=== PATIENT | female | born 1985 | race Caucasian/White ===

== ENCOUNTER 2020-06-29 11:45 | Outpatient (RCR) | payer OTHER, SELFPAY ==
--- NOTE | 2020-04-06 13:09 | W.PM.TMSCONS ---
History of Present Illness General Data Date of Service: 04/06/20 Reason for consult: TMS History of Present Illness Yoon has struggled with depression for many years. During this particular episode she has been having low mood, tearfulness, intrusive negative thoughts, no energy, no motivation and poor focus. She wonders if she can go on. She has tried various medications with Brad Gardiner, her prescriber, but remains symptomatic. She has no SI. She has on elissa. She has no psychosis. Current medication: Cymbalta 40mg daily - not able to tolerate higher doses due to constipation. Buspar was recently added but with no effect PHQ-9 19 KELLY-7 15 Past Psychiatric History/Medication Trials: No history of hospital stays. Therapy She has been seeing Yoanna De Jesus for over 3 years. She has remained symptomatic despite this. She sees Brad Gardiner, MEDICAL RECORDS RECEPTIONIST for medications. Medication trials: Celexa Lexapro Wellbutrin Sertraline Fetzima Effexor Timing of trials is not fully available at this time, but it is clear that the response was not adequate. 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 Trauma History: Unknown Mental Status Exam Mental Status Exam Patient Orientation: Person, Place, Time and Situation Level of Consciousness: Appropriate Patient Behavior: Appropriate and Cooperative Mood Description: Depressed and Sad Affect Description: Calm, Depressed and Sad Patient Cognition Impaired: No Ability to Follow Directions: Excellent Speech Pattern: Clear and Spontaneous Speech Memory Description: Intact Hallucinations: None Delusions: Not Present Thought Process: Intact, Rumination and Goal Oriented Thought Content: positive for Intact, positive for Circumstantial, negative for Suicidal Ideation and negative for Homicidal Ideation Depressive Symptoms: Insomnia, Diff. Making Decisions, Changes in Appetite, Loss of Int. in Activity, Feelings of Worthlessness, Hopelessness, Isolating-Friends/Family, Unhappiness, Thoughts of /Suicide, Low Self Esteem, Loss of Energy and Difficulty Concentrating Judgement: Good Assessment & Plan Assessment & Plan (1) Major depressive disorder, recurrent severe without psychotic features: Status: Acute Code(s): F33.2 - Major depressive disorder, recurrent severe without psychotic features Recommendations: Clear candidate for TMS. ECT is not an option due to restrictions this places on life. Refer for complete course of TMS. Greater than 50% of the session was spent on counseling and/or coordination of care Patient educated on: diagnosis, ECT and TMS Informed Consent: understands
--- NOTE | 2020-04-20 12:54 | HO.TMSDAILY2 ---
TMS Daily Progress Note Daily TMS Progress Note Week #: 1 Treatment #(07-14): 1 PHQ-9 Pre-Treatment (07-11): 18 PHQ-9 Most Recent (07-11): 18 KELLY-7 Pre-Treatment (0-): 15 KELLY-7 Most Recent (0-): 15 Reviewed: TMS Tech Note Reviewed (Had difficulty tolerating MT., but otherwise uncomplicated first treatment and mapping. Will CT as is for now.) Verification: I have reviewed the TMS Liturgical Music Director Note and agree with the contents. The patient remains a candidate to continue TMS treatment per protocol.
--- NOTE | 2020-04-24 21:59 | HO.TMSDAILY2 ---
TMS Daily Progress Note Daily TMS Progress Note Week #: 1 Treatment #(07-14): 2 PHQ-9 Pre-Treatment (07-11): 18 PHQ-9 Most Recent (07-11): 18 KELLY-7 Pre-Treatment (0-): 15 KELLY-7 Most Recent (0-): 15 Reviewed: TMS Tech Note Reviewed Verification: I have reviewed the TMS Exchange Architect Note and agree with the contents. The patient remains a candidate to continue TMS treatment per protocol.
--- NOTE | 2020-04-25 19:32 | HO.TMSDAILY2 ---
TMS Daily Progress Note Daily TMS Progress Note Week #: 1 Treatment #(07-14): 3 PHQ-9 Pre-Treatment (07-11): 18 PHQ-9 Most Recent (07-11): 18 KELLY-7 Pre-Treatment (0-21): 15 KELLY-7 Most Recent (0-21): 15 CGI-I Most Recent: 4 = No Change Q-LES-Q-SF Most Recent: 82 Reviewed: TMS Tech Note Reviewed Verification: I have reviewed the TMS Maintenance Superintendent Note and agree with the contents. The patient remains a candidate to continue TMS treatment per protocol.
--- NOTE | 2020-04-26 16:21 | HO.TMSDAILY2 ---
TMS Daily Progress Note Daily TMS Progress Note Week #: 1 Treatment #(07-14): 4 PHQ-9 Pre-Treatment (07-11): 18 PHQ-9 Most Recent (07-11): 18 KELLY-7 Pre-Treatment (0-21): 15 KELLY-7 Most Recent (0-21): 15 CGI-I Most Recent: 4 = No Change Q-LES-Q-SF Most Recent: 82 Reviewed: TMS Tech Note Reviewed Verification: I have reviewed the TMS Hotel Services Supervisor Note and agree with the contents. The patient remains a candidate to continue TMS treatment per protocol.
--- NOTE | 2020-04-27 23:16 | HO.TMSDAILY2 ---
TMS Daily Progress Note Daily TMS Progress Note Week #: 1 Treatment #(07-14): 5 PHQ-9 Pre-Treatment (07-11): 18 PHQ-9 Most Recent (07-11): 18 KELLY-7 Pre-Treatment (0-21): 15 KELLY-7 Most Recent (0-21): 15 CGI-I Most Recent: 4 = No Change Q-LES-Q-SF Most Recent: 82 Reviewed: TMS Tech Note Reviewed Verification: I have reviewed the TMS Military Technician Note and agree with the contents. The patient remains a candidate to continue TMS treatment per protocol.
--- NOTE | 2020-05-01 18:34 | HO.TMSDAILY2 ---
TMS Daily Progress Note Daily TMS Progress Note Week #: 2 Treatment #(07-14): 6 PHQ-9 Pre-Treatment (07-11): 19 PHQ-9 Most Recent (07-11): 15 KELLY-7 Pre-Treatment (0-21): 15 KELLY-7 Most Recent (0-21): 9 CGI-I Most Recent: 4 = No Change Q-LES-Q-SF Most Recent: 82 Reviewed: TMS Tech Note Reviewed (Yoon was remapped today. She was cooperative throughout. Settings were changed, and the MT was lower. Yoon was able to tolerate this much better.) Verification: I have reviewed the TMS Carbon Sequestration Plant Manager Note and agree with the contents. The patient remains a candidate to continue TMS treatment per protocol.
--- NOTE | 2020-05-01 23:59 | P.PNPS_ITS ---
TMS Daily Progress Note Daily TMS Progress Note Treatment #(-30): 6 PHQ-9 Pre-Treatment (-): 19 PHQ-9 Most Recent (07-11): 15 KELLY-7 Pre-Treatment (0-21): 15 KELLY-7 Most Recent (0-21): 9 CGI-I Most Recent: 4 = No Change Q-LES-Q-SF Most Recent: 82 Verification: I have reviewed the TMS Wellness Program Manager Note and agree with the contents. The patient remains a candidate to continue TMS treatment per protocol.
--- NOTE | 2020-05-02 14:11 | P.PNPS_ITS ---
TMS Daily Progress Note Daily TMS Progress Note Week #: 2 Treatment #(07-14): 7 PHQ-9 Pre-Treatment (07-11): 19 PHQ-9 Most Recent (07-11): 15 KELLY-7 Pre-Treatment (0-21): 15 KELLY-7 Most Recent (0-21): 9 CGI-I Most Recent: 4 = No Change Q-LES-Q-SF Most Recent: 82 Reviewed: TMS Tech Note Reviewed Verification: I have reviewed the TMS Field Auto Appraiser Note and agree with the contents. The patient remains a candidate to continue TMS treatment per protocol.
--- NOTE | 2020-05-03 04:20 | P.PNPS_ITS ---
TMS Daily Progress Note Daily TMS Progress Note Week #: 2 Treatment #(07-14): 8 PHQ-9 Pre-Treatment (07-11): 19 PHQ-9 Most Recent (07-11): 15 KELLY-7 Pre-Treatment (0-21): 15 KELLY-7 Most Recent (0-21): 9 CGI-I Most Recent: 4 = No Change Q-LES-Q-SF Most Recent: 82 Reviewed: TMS Tech Note Reviewed Verification: I have reviewed the TMS Clinic Scheduler Note and agree with the contents. The patient remains a candidate to continue TMS treatment per protocol.
--- NOTE | 2020-05-04 14:02 | P.PNPS_ITS ---
TMS Daily Progress Note Daily TMS Progress Note Week #: 2 Treatment #(07-14): 9 PHQ-9 Pre-Treatment (07-11): 19 PHQ-9 Most Recent (07-11): 15 KELLY-7 Pre-Treatment (0-21): 15 KELLY-7 Most Recent (0-21): 9 CGI-I Most Recent: 4 = No Change Q-LES-Q-SF Most Recent: 82 Reviewed: TMS Tech Note Reviewed Verification: I have reviewed the TMS Field Service Technician Poultry Note and agree with the contents. The patient remains a candidate to continue TMS treatment per protocol.
--- NOTE | 2020-05-08 23:15 | HO.TMSDAILY2 ---
TMS Daily Progress Note Daily TMS Progress Note Date of Service: 05/08/20 Week #: 2 Treatment #(07-14): 10 PHQ-9 Pre-Treatment (07-11): 19 PHQ-9 Most Recent (07-11): 16 CGI-I Most Recent: 4 = No Change Reviewed: TMS Tech Note Reviewed Verification: I have reviewed the TMS Director Of Institutional Research Note and agree with the contents. The patient remains a candidate to continue TMS treatment per protocol.
--- NOTE | 2020-05-09 05:45 | HO.TMSDAILY2 ---
TMS Daily Progress Note Daily TMS Progress Note Date of Service: 05/10/20 Week #: 3 Treatment #(-): 11 PHQ-9 Pre-Treatment (-): 19 PHQ-9 Most Recent (07-11): 16 KELLY-7 Pre-Treatment (0-21): 15 KELLY-7 Most Recent (0-21): 10 CGI-I Most Recent: 4 = No Change Q-LES-Q-SF Most Recent: 82 Reviewed: TMS Tech Note Reviewed Verification: I have reviewed the TMS Solution Sales Senior Executive Note and agree with the contents. The patient remains a candidate to continue TMS treatment per protocol.
--- NOTE | 2020-05-15 23:29 | HO.TMSDAILY2 ---
TMS Daily Progress Note Daily TMS Progress Note Date of Service: 05/15/20 Week #: 3 Treatment #(-): 12 PHQ-9 Pre-Treatment (-): 19 PHQ-9 Most Recent (07-11): 12 KELLY-7 Pre-Treatment (0-21): 15 KELLY-7 Most Recent (0-21): 10 CGI-I Most Recent: 4 = No Change Q-LES-Q-SF Most Recent: 82 Reviewed: TMS Tech Note Reviewed Verification: I have reviewed the TMS Skull Grinder Note and agree with the contents. The patient remains a candidate to continue TMS treatment per protocol.
--- NOTE | 2020-05-16 08:12 | P.PNPS_ITS ---
TMS Daily Progress Note Daily TMS Progress Note Date of Service: 05/16/20 Week #: 3 Treatment #(-): 13 PHQ-9 Pre-Treatment (-): 19 PHQ-9 Most Recent (07-11): 12 KELLY-7 Pre-Treatment (0-21): 15 KELLY-7 Most Recent (0-21): 10 CGI-I Most Recent: 4 = No Change Q-LES-Q-SF Most Recent: 82 Reviewed: TMS Tech Note Reviewed Verification: I have reviewed the TMS Resource Engineer Note and agree with the contents. The patient remains a candidate to continue TMS treatment per protocol.
--- NOTE | 2020-05-17 16:52 | P.PNPS_ITS ---
TMS Daily Progress Note Daily TMS Progress Note Date of Service: 05/17/20 Week #: 3 Treatment #(-): 14 PHQ-9 Pre-Treatment (-): 19 PHQ-9 Most Recent (07-11): 12 KELLY-7 Pre-Treatment (0-21): 15 KELLY-7 Most Recent (0-21): 10 CGI-I Most Recent: 4 = No Change Q-LES-Q-SF Most Recent: 75 Reviewed: TMS Tech Note Reviewed Verification: I have reviewed the TMS Chain Link Fence Installer Note and agree with the contents. The patient remains a candidate to continue TMS treatment per protocol.
--- NOTE | 2020-05-22 20:41 | HO.TMSDAILY2 ---
TMS Daily Progress Note Daily TMS Progress Note Date of Service: 05/22/20 Week #: 3 Treatment #(-30): 15 PHQ-9 Pre-Treatment (-): 19 PHQ-9 Most Recent (07-11): 12 KELLY-7 Pre-Treatment (0-21): 15 KELLY-7 Most Recent (0-21): 10 CGI-I Most Recent: 4 = No Change Q-LES-Q-SF Most Recent: 64 Reviewed: TMS Tech Note Reviewed Verification: I have reviewed the TMS Reheater Helper Note and agree with the contents. The patient remains a candidate to continue TMS treatment per protocol.
--- NOTE | 2020-05-23 20:54 | HO.TMSDAILY2 ---
TMS Daily Progress Note Daily TMS Progress Note Date of Service: 05/23/20 Week #: 4 Treatment #(-): 16 PHQ-9 Pre-Treatment (-): 19 PHQ-9 Most Recent (07-11): 12 KELLY-7 Pre-Treatment (0-21): 15 KELLY-7 Most Recent (0-21): 10 CGI-I Most Recent: 4 = No Change Q-LES-Q-SF Most Recent: 64 Reviewed: TMS Tech Note Reviewed Verification: I have reviewed the TMS Paper Tube Cutter Note and agree with the contents. The patient remains a candidate to continue TMS treatment per protocol.
--- NOTE | 2020-05-25 09:00 | HO.TMSDAILY2 ---
TMS Daily Progress Note Daily TMS Progress Note Date of Service: 05/25/20 Week #: 4 Treatment #(-30): 17 PHQ-9 Pre-Treatment (1-): 19 PHQ-9 Most Recent (07-11): 12 KELLY-7 Pre-Treatment (0-21): 15 KELLY-7 Most Recent (0-21): 10 CGI-I Most Recent: 4 = No Change Q-LES-Q-SF Most Recent: 64 Reviewed: TMS Tech Note Reviewed (Late entry for 05/24/20) Verification: I have reviewed the TMS Medical Sales Specialist Note and agree with the contents. The patient remains a candidate to continue TMS treatment per protocol.
--- NOTE | 2020-05-25 16:11 | HO.TMSDAILY2 ---
TMS Daily Progress Note Daily TMS Progress Note Date of Service: 05/25/20 Week #: 4 Treatment #(-): 18 PHQ-9 Pre-Treatment (-): 19 PHQ-9 Most Recent (07-11): 12 KELLY-7 Pre-Treatment (0-21): 15 KELLY-7 Most Recent (0-21): 10 CGI-I Most Recent: 4 = No Change Q-LES-Q-SF Most Recent: 64 Reviewed: TMS Tech Note Reviewed Verification: I have reviewed the TMS Vehicle Assembler Note and agree with the contents. The patient remains a candidate to continue TMS treatment per protocol.
--- NOTE | 2020-05-29 13:17 | P.PNPS_ITS ---
TMS Daily Progress Note Daily TMS Progress Note Date of Service: 05/29/20 Week #: 4 Treatment #(07-14): 19 PHQ-9 Pre-Treatment (-): 19 PHQ-9 Most Recent (07-11): 12 KELLY-7 Pre-Treatment (0-21): 15 KELLY-7 Most Recent (0-21): 12 CGI-I Most Recent: 4 = No Change Q-LES-Q-SF Most Recent: 64 Reviewed: TMS Tech Note Reviewed Verification: I have reviewed the TMS Enterprise Systems Manager Note and agree with the contents. The patient remains a candidate to continue TMS treatment per protocol.
--- NOTE | 2020-05-30 15:40 | HO.TMSDAILY2 ---
TMS Daily Progress Note Daily TMS Progress Note Date of Service: 05/30/20 Week #: 4 Treatment #(-30): 20 PHQ-9 Pre-Treatment (-): 19 PHQ-9 Most Recent (07-11): 12 KELLY-7 Pre-Treatment (0-21): 15 KELLY-7 Most Recent (0-21): 12 CGI-I Most Recent: 4 = No Change Q-LES-Q-SF Most Recent: 64 Reviewed: TMS Tech Note Reviewed Verification: I have reviewed the TMS Production Honing Machine Operator Note and agree with the contents. The patient remains a candidate to continue TMS treatment per protocol.
--- NOTE | 2020-06-01 18:19 | HO.TMSDAILY2 ---
TMS Daily Progress Note Daily TMS Progress Note Date of Service: 06/01/20 Week #: 5 Treatment #(-30): 21 PHQ-9 Pre-Treatment (-): 19 PHQ-9 Most Recent (07-11): 12 KELLY-7 Pre-Treatment (0-21): 15 KELLY-7 Most Recent (0-21): 12 CGI-I Most Recent: 4 = No Change Q-LES-Q-SF Most Recent: 64 Reviewed: TMS Tech Note Reviewed Verification: I have reviewed the TMS Ripening Room Hand Note and agree with the contents. The patient remains a candidate to continue TMS treatment per protocol.
--- NOTE | 2020-06-05 22:53 | P.PNPS_ITS ---
TMS Daily Progress Note Daily TMS Progress Note Date of Service: 06/05/20 Week #: 5 Treatment #(-30): 22 PHQ-9 Pre-Treatment (-): 19 PHQ-9 Most Recent (07-11): 12 KELLY-7 Pre-Treatment (0-21): 15 KELLY-7 Most Recent (0-21): 12 CGI-I Most Recent: 4 = No Change Q-LES-Q-SF Most Recent: 64 Reviewed: TMS Tech Note Reviewed Verification: I have reviewed the TMS Consulting Systems Engineer Note and agree with the contents. The patient remains a candidate to continue TMS treatment per protocol.
--- NOTE | 2020-06-07 18:03 | HO.TMSDAILY2 ---
TMS Daily Progress Note Daily TMS Progress Note Date of Service: 06/07/20 Week #: 5 Treatment #(-30): 24 PHQ-9 Pre-Treatment (-): 19 PHQ-9 Most Recent (07-11): 12 KELLY-7 Pre-Treatment (0-21): 15 KELLY-7 Most Recent (0-21): 12 CGI-I Most Recent: 4 = No Change Q-LES-Q-SF Most Recent: 64 Reviewed: TMS Tech Note Reviewed Verification: I have reviewed the TMS Hammer Repairer Note and agree with the contents. The patient remains a candidate to continue TMS treatment per protocol.
--- NOTE | 2020-06-12 23:07 | HO.TMSDAILY2 ---
TMS Daily Progress Note Daily TMS Progress Note Date of Service: 06/12/20 Week #: 5 Treatment #(-): 25 PHQ-9 Pre-Treatment (1-): 19 PHQ-9 Most Recent (-): 12 KELLY-7 Pre-Treatment (0-21): 15 KELLY-7 Most Recent (0-21): 12 CGI-I Most Recent: 4 = No Change Q-LES-Q-SF Most Recent: 64 Reviewed: TMS Tech Note Reviewed Verification: I have reviewed the TMS Professor Of Psychology Note and agree with the contents. The patient remains a candidate to continue TMS treatment per protocol.
--- NOTE | 2020-06-13 23:11 | HO.TMSDAILY2 ---
TMS Daily Progress Note Daily TMS Progress Note Date of Service: 06/14/20 Week #: 6 Treatment #(-30): 26 PHQ-9 Pre-Treatment (1-): 19 PHQ-9 Most Recent (-): 12 KELLY-7 Pre-Treatment (0-21): 15 KELLY-7 Most Recent (0-21): 12 CGI-I Most Recent: 4 = No Change Q-LES-Q-SF Most Recent: 64 Reviewed: TMS Tech Note Reviewed Verification: I have reviewed the TMS Casino Floor Walker Note and agree with the contents. The patient remains a candidate to continue TMS treatment per protocol.
--- NOTE | 2020-06-14 23:49 | P.PNPS_ITS ---
TMS Daily Progress Note Daily TMS Progress Note Date of Service: 06/18/20 Week #: 6 Treatment #(-): 27 PHQ-9 Pre-Treatment (-): 19 PHQ-9 Most Recent (07-11): 12 KELLY-7 Pre-Treatment (0-21): 15 KELLY-7 Most Recent (0-21): 12 CGI-I Most Recent: 4 = No Change Q-LES-Q-SF Most Recent: 64 Reviewed: TMS Tech Note Reviewed Verification: I have reviewed the TMS Printing Press Operator Note and agree with the contents. The patient remains a candidate to continue TMS treatment per protocol.
--- NOTE | 2020-06-18 23:53 | P.PNPS_ITS ---
TMS Daily Progress Note Daily TMS Progress Note Date of Service: 06/19/20 Week #: 6 Treatment #(-): 27 PHQ-9 Pre-Treatment (-): 19 PHQ-9 Most Recent (07-11): 12 KELLY-7 Pre-Treatment (0-): 15 KELLY-7 Most Recent (0-21): 12 CGI-I Most Recent: 4 = No Change Q-LES-Q-SF Most Recent: 64 Reviewed: TMS Tech Note Reviewed Verification: I have reviewed the TMS Electric Razor Mechanic Note and agree with the contents. The patient remains a candidate to continue TMS treatment per protocol.
--- NOTE | 2020-06-19 23:00 | P.PNPS_ITS ---
TMS Daily Progress Note Daily TMS Progress Note Date of Service: 06/19/20 Week #: 6 Treatment #(-): 28 PHQ-9 Pre-Treatment (-): 19 PHQ-9 Most Recent (07-11): 12 KELLY-7 Pre-Treatment (0-): 15 KELLY-7 Most Recent (0-21): 12 CGI-I Most Recent: 4 = No Change Q-LES-Q-SF Most Recent: 64 Reviewed: TMS Tech Note Reviewed Verification: I have reviewed the TMS Production Technologist Note and agree with the contents. The patient remains a candidate to continue TMS treatment per protocol.
--- NOTE | 2020-06-20 23:26 | HO.TMSDAILY2 ---
TMS Daily Progress Note Daily TMS Progress Note Date of Service: 06/20/20 Week #: 6 Treatment #(-): 29 PHQ-9 Pre-Treatment (-): 19 PHQ-9 Most Recent (07-11): 12 KELLY-7 Pre-Treatment (0-21): 15 KELLY-7 Most Recent (0-21): 12 CGI-I Most Recent: 4 = No Change Q-LES-Q-SF Most Recent: 64 Reviewed: TMS Tech Note Reviewed Verification: I have reviewed the TMS Knitting Machine Operator Note and agree with the contents. The patient remains a candidate to continue TMS treatment per protocol.
--- NOTE | 2020-06-21 17:26 | HO.TMSDAILY2 ---
TMS Daily Progress Note Daily TMS Progress Note Date of Service: 06/22/20 Week #: 6 Treatment #(-): 30 PHQ-9 Pre-Treatment (-): 19 PHQ-9 Most Recent (07-11): 12 KELLY-7 Pre-Treatment (0-21): 15 KELLY-7 Most Recent (0-21): 12 CGI-I Most Recent: 4 = No Change Q-LES-Q-SF Most Recent: 64 Reviewed: TMS Tech Note Reviewed Verification: I have reviewed the TMS Taxation Accountant Note and agree with the contents. The patient remains a candidate to continue TMS treatment per protocol.
--- NOTE | 2020-06-22 09:37 | P.PNPS_ITS ---
TMS Daily Progress Note Daily TMS Progress Note Date of Service: 06/22/20 Week #: 7 Treatment #(-): 31 PHQ-9 Pre-Treatment (-): 19 PHQ-9 Most Recent (07-11): 12 KELLY-7 Pre-Treatment (0-): 15 KELLY-7 Most Recent (0-): 12 CGI-I Most Recent: 4 = No Change Q-LES-Q-SF Most Recent: 64 Reviewed: TMS Tech Note Reviewed Verification: I have reviewed the TMS Industrial Rehabilitation Consultant Note and agree with the contents. The patient remains a candidate to continue TMS treatment per protocol.
--- NOTE | 2020-06-25 22:20 | P.PNPS_ITS ---
TMS Daily Progress Note Daily TMS Progress Note Date of Service: 06/25/20 Week #: 7 Treatment #(-): 32 PHQ-9 Pre-Treatment (-): 19 PHQ-9 Most Recent (07-11): 12 KELLY-7 Pre-Treatment (0-21): 15 KELLY-7 Most Recent (0-21): 12 CGI-I Most Recent: 4 = No Change Q-LES-Q-SF Most Recent: 64 Reviewed: TMS Tech Note Reviewed Verification: I have reviewed the TMS Plastic Injection Mold Maker Note and agree with the contents. The patient remains a candidate to continue TMS treatment per protocol.
--- NOTE | 2020-06-26 22:57 | P.PNPS_ITS ---
TMS Daily Progress Note Daily TMS Progress Note Date of Service: 06/26/20 Week #: 8 Treatment #(-): 33 PHQ-9 Pre-Treatment (-): 19 PHQ-9 Most Recent (07-11): 12 KELLY-7 Pre-Treatment (0-21): 15 KELLY-7 Most Recent (0-21): 12 CGI-I Most Recent: 4 = No Change Q-LES-Q-SF Most Recent: 64 Reviewed: TMS Tech Note Reviewed Verification: I have reviewed the TMS Marketing Technologist Note and agree with the contents. The patient remains a candidate to continue TMS treatment per protocol.
--- NOTE | 2020-06-27 09:42 | P.PNPS_ITS ---
TMS Daily Progress Note Daily TMS Progress Note Date of Service: 06/27/20 Week #: 8 Treatment #(07-14): 34 PHQ-9 Pre-Treatment (-): 19 PHQ-9 Most Recent (07-11): 12 KELLY-7 Pre-Treatment (0-21): 15 KELLY-7 Most Recent (0-21): 12 CGI-I Most Recent: 4 = No Change Q-LES-Q-SF Most Recent: 64 Reviewed: TMS Tech Note Reviewed Verification: I have reviewed the TMS Photographer'S Assistant Note and agree with the contents. The patient remains a candidate to continue TMS treatment per protocol.
== END 2020-06-29 12:00 | disposition home or self-care (01) ==
LOC: HO.PTMS 11:45
PROVIDERS: Visit Provider Psychiatry & Neurology Psychiatry
DX: F33.2 Major depressive disorder, recurrent severe without psychotic features (principal)
CPT/HCPCS: 90867; 90868; 90869

== ENCOUNTER → 2020-09-17 14:29 | Outpatient (BNVA) | payer OTHER, SELFPAY | PROVIDERS: PCP Physician Assistant; Visit Provider Internal Medicine Gastroenterology ==

== ENCOUNTER → 2021-04-02 08:29 | Outpatient (BNVA) | payer OTHER, SELFPAY | PROVIDERS: PCP Physician Assistant; Visit Provider Psychiatry & Neurology Neurology ==

== ENCOUNTER → 2021-05-28 21:45 | Outpatient (REF) | payer OTHER, SELFPAY | LOC: HO.SL 21:45 | PROVIDERS: Visit Provider Psychiatry & Neurology Neurology | DX: G47.50 Parasomnia, unspecified (principal); R06.83 Snoring; R68.89 Other general symptoms and signs; F45.8 Other somatoform disorders | CPT/HCPCS: 95810 ==

== ENCOUNTER → 2021-06-25 14:59 | Outpatient (BNVA) | payer OTHER, SELFPAY | PROVIDERS: PCP Physician Assistant; Visit Provider Psychiatry & Neurology Neurology ==

== ENCOUNTER 2021-06-26 15:31 | Outpatient (REF) | payer OTHER, SELFPAY ==
[2021-06-26 15:44] LABS: MANUAL DIFF FLAG NO
[2021-06-26 16:24] LABS: Basophils Percent Auto 0.3 % (0-2); Eosinophils Absolute Auto 0.1 X10*3/uL (0.0-0.4); Eosinophils Percent Auto 0.8 % (0-4); Hematocrit 40.3 % (37.0-47.0); Hemoglobin 13.2 g/dl (12.0-16.0); Imm Gran Abs Auto 0.02 X10*3/uL (0.00-0.03); Imm Gran Pct Auto 0.2 % (0.0-0.4); Lymphocytes Absolute Auto 2.4 X10*3/uL (1.2-4.9); Lymphocytes Percent Auto 26.8 % (20-40); Mean Corpuscular HGB Conc 32.8 g/dl (31.0-35.0); Mean Corpuscular Hemoglobin 30.9 pg (27.0-33.0); Mean Corpuscular Volume 94.4 fL (80.0-98.0); Monocytes Absolute Auto 0.5 X10*3/uL (0.1-1.2); Monocytes Percent Auto 5.7 % (2-11); Neutrophils Absolute Auto 5.9 x10*3/uL (2.0-8.3); Neutrophils Percent Auto 66.2 % (45-73); Platelet Count 371 X10*3/uL (160-400); Red Blood Count 4.27 X10*6/uL (4.20-5.50); Red Cell Distribution Width 12.4 % (11.0-16.0); White Blood Count 8.9 X10*3/uL (4.8-10.8)
[2021-06-26 16:47] LABS: Alanine Aminotransferase 15 U/L (0-31); Albumin Level 4.4 g/dL (3.5-5.0); Alkaline Phosphatase 60 U/L (39-117); Anion Gap 13 (12-20); Aspartate Amino Transferase 14 U/L (5-31); Bilirubin Total 0.5 mg/dL (0.0-1.0); Blood Urea Nitrogen 19 mg/dL (9-16); Calcium 9.8 mg/dL (8.4-10.2); Carbon Dioxide 23 mmol/L (22-29); Chloride 108 mmol/L (96-108); Estimated Glomerular Filt Rate > 60; Glucose Random 87 mg/dL (60-115); Sodium 139 mmol/L (135-145); Total Protein 7.3 g/dL (6.5-8.0)
[2021-06-26 17:08] LABS: Ferritin 36 ng/mL (10-122); Thyroid Stimulating Hormone 0.94 uIU/mL (0.32-4.0)
== END 2021-06-26 15:32 | disposition home or self-care (01) ==
LOC: HO.LAB 15:31
PROVIDERS: PCP Physician Assistant; Visit Provider Psychiatry & Neurology Neurology
DX: G47.61 Periodic limb movement disorder (principal); R06.83 Snoring; R68.89 Other general symptoms and signs
CPT/HCPCS: 36415; 80053; 82728; 84443; 85025

== ENCOUNTER 2021-07-01 15:58 | Outpatient (REF) | payer OTHER, SELFPAY ==
[2021-07-01 17:58] LABS: Vitamin D 25-OH Total 23.3 ng/mL (>30)
== END 2021-07-01 15:59 | disposition home or self-care (01) ==
LOC: HO.LAB 15:58
PROVIDERS: PCP Physician Assistant; Visit Provider Psychiatry & Neurology Neurology
DX: G47.61 Periodic limb movement disorder (principal); G47.50 Parasomnia, unspecified
CPT/HCPCS: 36415; 82306

== ENCOUNTER → 2021-08-20 11:36 | Outpatient (BNVA) | payer OTHER, SELFPAY | PROVIDERS: PCP Physician Assistant; Visit Provider Psychiatry & Neurology Neurology ==

== ENCOUNTER 2023-02-27 13:43 | Outpatient (REF) | payer MEDICAID, SELFPAY ==
[2023-02-27 14:06] LABS: MANUAL DIFF FLAG NO
[2023-02-27 14:17] LABS: Basophils Percent Auto 0.4 % (0-2); Eosinophils Absolute Auto 0.1 X10*3/uL (0.0-0.4); Eosinophils Percent Auto 0.9 % (0-4); Hematocrit 39.9 % (37.0-47.0); Hemoglobin 13.7 g/dl (12.0-16.0); Imm Gran Abs Auto 0.02 X10*3/uL (0.00-0.03); Imm Gran Pct Auto 0.3 % (0.0-0.4); Lymphocytes Absolute Auto 2.7 X10*3/uL (1.2-4.9); Lymphocytes Percent Auto 33.4 % (20-40); Mean Corpuscular HGB Conc 34.3 g/dl (31.0-35.0); Mean Corpuscular Hemoglobin 31.7 pg (27.0-33.0); Mean Corpuscular Volume 92.4 fL (80.0-98.0); Mean Platelet Volume 9.6 fL (9.4-12.3); Monocytes Absolute Auto 0.4 X10*3/uL (0.1-1.2); Monocytes Percent Auto 5.5 % (2-11); Neutrophils Absolute Auto 4.7 x10*3/uL (2.0-8.3); Neutrophils Percent Auto 59.5 % (45-73); Platelet Count 371 X10*3/uL (160-400); Red Blood Count 4.32 X10*6/uL (4.20-5.50); Red Cell Distribution Width 12.1 % (11.0-16.0)
[2023-02-27 16:19] LABS: Alanine Aminotransferase 14 U/L (0-31); Albumin Level 4.2 g/dL (3.5-5.0); Alkaline Phosphatase 58 U/L (39-117); Anion Gap 11 (12-20); Aspartate Amino Transferase 14 U/L (5-31); Bilirubin Total 0.5 mg/dL (0.0-1.0); Blood Urea Nitrogen 11 mg/dL (9-16); C Reactive Protein 0.46 mg/dL (< or = 0.50); Calcium 9.3 mg/dL (8.4-10.2); Carbon Dioxide 25 mmol/L (22-29); Chloride 108 mmol/L (96-108); Estimated Glomerular Filt Rate > 60; Ferritin 47 ng/mL (10-122); Glucose Random 87 mg/dL (60-115); Potassium 4.1 mmol/L (3.3-5.1); Sodium 140 mmol/L (135-145)
[2023-02-27 16:42] LABS: Vitamin B12 235 pg/mL (200-900)
[2023-03-02 21:29] LABS: IgA 185 mg/dL (47-310); IgG 994 mg/dL (600-1640); IgM 91 mg/dL (50-300)
[2023-03-04 03:23] LABS: Zinc 67 mcg/dL (60-130)
[2023-03-04 13:23] LABS: Transglutaminase Ab IgG <1.0 U/mL
[2023-03-04 19:59] LABS: Vitamin A 45 mcg/dL (38-98)
[2023-03-07 15:18] LABS: Vitamin B1 12 nmol/L (8-30)
== END 2023-02-27 13:44 | disposition home or self-care (01) ==
LOC: HO.LAB 13:43
PROVIDERS: PCP Nurse Practitioner; Visit Provider Internal Medicine Gastroenterology
DX: R10.33 Periumbilical pain (principal); K75.81 Nonalcoholic steatohepatitis (NASH); G89.29 Other chronic pain; R19.7 Diarrhea, unspecified; E46 Unspecified protein-calorie malnutrition
CPT/HCPCS: 36415; 80053; 82607; 82728; 82746; 82784; 84425; 84590; 84630; 85025; 86140; 86364

== ENCOUNTER 2023-03-02 | Outpatient (REF) | payer MEDICAID, SELFPAY ==
[2023-03-02 14:11] LABS: CDiff Gene PCR NEGATIVE (Negative)
[2023-03-02 17:00] LABS: Adenovirus F 40/41 Not Detected (Not Detect.); Astrovirus Not Detected (Not Detect.); Campylobacter Not Detected (Not Detect.); Cryptosporidium Not Detected (Not Detect.); Cyclospora cayetanensis Not Detected (Not Detect.); E. coli EAEC Not Detected (Not Detect.); E. coli EPEC Not Detected (Not Detect.); E. coli ETEC Not Detected (Not Detect.); E. coli STEC Not Detected (Not Detect.); Entamoeba histolytica Not Detected (Not Detect.); Giardia lamblia Not Detected (Not Detect.); Norovirus GI/GII Not Detected (Not Detect.); Plesiomonas shigelloides Not Detected (Not Detect.); Rotavirus A Not Detected (Not Detect.); Salmonella Not Detected (Not Detect.); Sapovirus Not Detected (Not Detect.); Shigella sp./EIEC Not Detected (Not Detect.); Vibrio Not Detected (Not Detect.); Vibrio Cholerae Not Detected (Not Detect.); Yersinia enterocolitica Not Detected (Not Detect.)
== END 2023-03-02 00:01 | disposition home or self-care (01) ==
LOC: HO.LNP
PROVIDERS: Visit Provider Internal Medicine Gastroenterology
DX: R19.7 Diarrhea, unspecified (principal); E46 Unspecified protein-calorie malnutrition; K51.50 Left sided colitis without complications
CPT/HCPCS: 82656; 82705; 83631; 87329; 87493; 87507